=== PATIENT | male | born 1960 | race Two or more races ===

== ENCOUNTER → 2017-12-18 | Outpatient (CLI) | payer BC ==
[~2017-12-18] MED LIST: IOHEXOL 300 MG/ML 75 ML VIAL. IV ONE
[2017-12-18 09:22] LABS: GFR 77.3
--- NOTE | 2017-12-18 11:41 | RAD ---
Indication: Adenopathy. Known pulmonary embolism, diagnosed in September. Patient on blood thinners. Technique: Axial images and coronal and sagittal maximum intensity projection reformatted images are provided. The first contrast bolus was suboptimal in the patient was reinjected and imaging repeated. Total injection is 150 mL of intravenous Omnipaque 300. No comparison studies are available at this institution. One or more of the following individualized dose reduction techniques were utilized for this examination: 1. Automated exposure control 2. Adjustment of the mA and/or kV according to patient size 3. Use of iterative reconstruction technique Findings: The second contrast bolus is satisfactory. The exam is positive for nonocclusive thrombus within right lower lobe segmental arteries, best apparent series 4 image 80. No additional thrombus is apparent. There is no evidence of heart strain. Heart is not enlarged. There is minimal atheromatous disease in the thoracic aorta. There is no aortic aneurysm or dissection. There are prominent prevascular lymph nodes. Again, the outside prior study demonstrating adenopathy and pulmonary embolism is not provided. Largest of these nodes measures 22 x 13 mm in size. Largest right paratracheal lymph node measures 33 x 21 mm. Largest right hilar lymph node measures 31 x 22 mm. There are calcified left hilar and subcarinal lymph nodes. There are also a few calcified prevascular lymph nodes although the majority the prevascular lymph nodes are noncalcified. There is no pleural effusion. There is granulomatous disease. There is dependent atelectasis. There is emphysema. This is moderate. There is no worrisome pulmonary nodule. Central airways are patent. There is fatty infiltration of the liver. There are degenerative changes in the spine. IMPRESSION: 1. Right hilar and mediastinal adenopathy. Recommend correlation with the recent prior study. Reactive adenopathy and sarcoidosis are considerations. Follow-up to exclude metastatic disease or lymphoma is recommended. 2. Small amount of pulmonary embolism within right lower lobe segmental arteries, not occlusive. Please correlate with distribution/thrombus burden on prior CT. 3. Emphysema. 4. Granulomatous disease. 5. Fatty infiltration of the liver. Electronically signed by: Mayo Zamarripa MD (12/18/2017 11:38 AM) [id number]
== END | disposition home or self-care (01) ==
LOC: CT 08:31
PROVIDERS: ATTEND Internal Medicine Critical Care Medicine
DX: I26.99 Other pulmonary embolism without acute cor pulmonale (principal); J43.9 Emphysema, unspecified; D71 Functional disorders of polymorphonuclear neutrophils; K76.0 Fatty (change of) liver, not elsewhere classified; Z86.711 Personal history of pulmonary embolism
CPT/HCPCS: 36415; 71275; 82565; 84520; Q9967

== ENCOUNTER → 2017-12-25 | Outpatient (CLI) | payer BC ==
[2017-12-25 20:09] LABS: HOMOCYTSINE LEVEL 10.1 umol/L (0.0-15.0)
== END | disposition home or self-care (01) ==
LOC: LAB 07:40
PROVIDERS: ATTEND Internal Medicine Critical Care Medicine
DX: D71 Functional disorders of polymorphonuclear neutrophils (principal); K76.0 Fatty (change of) liver, not elsewhere classified; Z86.711 Personal history of pulmonary embolism
CPT/HCPCS: 36415; 83090; 85220

== ENCOUNTER → 2017-12-30 | Outpatient (CLI) | payer BC ==
--- NOTE | 2017-12-30 13:05 | RAD ---
Right leg venous Doppler study: Clinical indications: Right leg swelling and pain. History of pulmonary embolism. Findings: Duplex sonography (including quinn scale evaluation and color flow and waveform spectral analysis) of the proximal aspect of the greater saphenous vein and proximal aspect of the profunda femoral vein and the entire length of the common femoral and superficial femoral and popliteal veins and the tibioperoneal trunk and the proximal aspect of the posterior tibial and peroneal veins of the right leg was performed. Normal compressibility, augmentation of color Doppler flow after calf compression, and respiratory variation of Doppler flow is seen. Thus, there are no sonographic findings of deep venous thrombosis within these veins. Impression: There are no sonographic findings of deep venous thrombosis within the veins discussed above of the right lower extremity. Left leg venous Doppler study: Clinical indications: Left leg swelling and pain. History of pulmonary embolism. Findings: Duplex sonography (including quinn scale evaluation and color flow and waveform spectral analysis) of the proximal aspect of the greater saphenous vein and the proximal aspect of the profunda femoral vein and the entire length of the common femoral and superficial femoral and popliteal veins and the tibioperoneal trunk and the proximal aspect of the posterior tibial and peroneal veins of the left leg was performed. Normal compressibility, augmentation of color Doppler flow after calf compression, and respiratory variation of Doppler flow is seen. Thus, there are no sonographic findings of deep venous thrombosis within these veins. Impression: There are no sonographic findings of deep venous thrombosis within the veins discussed above of the left lower extremity. There is a 2.8 cm x 1.5 cm and 1.3 cm hypoechoic area with sound through transmission within the medial aspect of the left calf. Color Doppler flow is seen around it but not within it. This could represent a hematoma related to a muscle tear.
== END | disposition home or self-care (01) ==
LOC: US 11:56
PROVIDERS: ATTEND Nurse Practitioner Family
DX: M79.605 Pain in left leg (principal); M79.604 Pain in right leg; M79.89 Other specified soft tissue disorders; Z86.711 Personal history of pulmonary embolism
CPT/HCPCS: 93970

== ENCOUNTER → 2018-06-19 | Outpatient (CLI) | payer BC ==
[~2018-06-19] MED LIST changes: +BUDE10.2 IH; +LISI1TAB3 PO; +METF10003 PO; +RIVA10TA PO
[2018-06-19 11:59] LABS: BASO % 1 % (0-3); EOS % 1 % (0-3); HEMATOCRIT 42.5 % (39.0-53.0); HEMOGLOBIN 14.8 g/dL (13.0-17.5); LYMPH # 0.7 x10^3/uL (1.0-4.8); LYMPH % 17 % (24-48); MEAN CORPUSCULAR HEMOGLOBIN 30 pg (25-35); MEAN CORPUSCULAR HGB CONC 35 g/dL (31-37); MEAN CORPUSCULAR VOLUME 88 fL (79-100); MONO # 0.7 x10^3/uL (0.0-1.1); MONO % 17 % (0-9); NEUT # 2.6 x10^3uL (1.8-7.7); NEUT % 65 % (31-73); PLATELET COUNT 128 x10^3/uL (140-400); RED BLOOD COUNT 4.86 x10^6/uL (4.30-5.70); RED CELL DISTRIBUTION WIDTH 15.1 % (11.5-14.5)
[2018-06-19 12:07] LABS: ALBUMIN 3.7 g/dL (3.4-5.0); ALBUMIN/GLOBULIN RATIO 0.9 (1.0-1.7); CALCIUM 8.9 mg/dL (8.5-10.1); CREATININE 1.1 mg/dL (0.7-1.3); TOTAL BILIRUBIN 0.4 mg/dL (0.2-1.0); TOTAL PROTEIN 7.6 g/dL (6.4-8.2)
--- NOTE | 2018-06-19 12:13 | RAD ---
CT of the abdomen and pelvis with contrast, 06/19/2018: HISTORY: Abdominal pain Multidetector CT imaging was performed following an IV bolus injection of iodinated contrast material. No oral contrast material was administered for this exam as requested. Comparison is made to a study from 04/19/2018. The liver is of lower than normal density and diffuse pattern compatible with fatty change. It is enlarged measuring 21 cm in craniocaudad extent at the level the right lobe. Several calcified hepatic and splenic granulomata are present. No hepatic mass is evident. The gallbladder is unremarkable. No pancreatic abnormality is detected. The spleen is of normal size. There is bilateral renal cortical scarring. The kidneys show no evidence of obstruction or mass. No adrenal abnormality is detected. Aortoiliac calcific plaquing is present no abdominal or pelvic adenopathy is seen. Streaky paracolic inflammation has developed at the proximal sigmoid level. There are underlying diverticula with mild mural thickening. The findings suggest acute diverticulitis. No discrete paracolic fluid collection is seen to suggest abscess. The bowel loops are not dilated. No free air or free fluid is evident in the abdomen or pelvis. IMPRESSION: 1. Acute proximal sigmoid diverticulitis. 2. Hepatomegaly with hepatic steatosis. PQRS Compliance Statement: One or more of the following individualized dose reduction techniques were utilized for this examination: 1. Automated exposure control 2. Adjustment of the mA and/or kV according to patient size 3. Use of iterative reconstruction technique Electronically signed by: Hernesto Ramirez MD (06/19/2018 12:09 PM) [facility]
== END | disposition home or self-care (01) ==
LOC: CT 10:33
PROVIDERS: ATTEND Family Medicine
DX: K57.32 Diverticulitis of large intestine without perforation or abscess without bleeding (principal); K76.0 Fatty (change of) liver, not elsewhere classified; I10 Essential (primary) hypertension; E11.9 Type 2 diabetes mellitus without complications; J43.9 Emphysema, unspecified; Z86.711 Personal history of pulmonary embolism; Z87.891 Personal history of nicotine dependence
CPT/HCPCS: 36415; 74160; 80053; 82150; 83690; 85025; Q9967

== ENCOUNTER 2021-12-23 16:49 | Emergency (ER) | payer MEDICARE ==
[~2021-12-23] VITALS: Ht 182.9 cm; Wt 117.0 kg
[~2021-12-23 16:49] MED LIST changes: -IOHEXOL 300 MG/ML 75 ML VIAL. IV ONE; -LISI1TAB3 PO; +LISI1TAB35 PO; -METF10003 PO; +METF10007 PO
--- NOTE | 2021-12-23 17:43 | PHYS DOC ---
Past History Past Medical History: Bronchitis, Cancer, CHF, Hypertension (ELIGIO ARGUELLO MD) General Adult EDM: Chief Complaint: SHORTNESS OF BREATH HPI: HPI: 61-year-old male presents with shortness of breath. Patient has a history of lung cancer and PEs. He is on Eliquis. He started amlodipine about a week ago. For the last week he has started to feel more short of breath. He is also noted some lower extremity swelling and redness on his bilateral lower legs around the sock line. He denies any falls or trauma. He is always on 4 L of oxygen at home. His primary care physician recommended that he come in for evaluation. Patient denies fever or chills. (RASHAWN DAVIS DO) HPI: PhX. = Lung Ca, Dm, HTN, PE's, on Eliquis, Oxygen Dept. 2-4 lit NC, recent start on amlodipine. Primary Dr Gallardo. (ELIGIO ARGUELLO MD) Review of Systems: Review of Systems: Constitutional: Denies fever or chills Eyes: Denies change in visual acuity HENT: Denies nasal congestion or sore throat Respiratory: shortness of breath Cardiovascular: Edema of the bilateral lower legs. GI: Denies abdominal pain, nausea, vomiting, bloody stools or diarrhea : Denies dysuria Musculoskeletal: Denies back pain or joint pain Integument: Denies rash Neurologic: Denies headache, focal weakness or sensory changes Endocrine: Denies polyuria or polydipsia Lymphatic: Denies swollen glands Psychiatric: Denies depression or anxiety (RASHAWN DAVIS DO) Allergies: Allergies: Allergies Coded Allergies Type Severity Reaction Last Updated Verified pravastatin Allergy Unknown 06/19/18 Yes (RASHAWN DAVIS DO) Physical Exam: PE: Constitutional: Well developed, well nourished, no acute distress, non-toxic appearance. [] HENT: Normocephalic, atraumatic, bilateral external ears normal, oropharynx moist, no oral exudates, nose normal. [] Eyes: PERRLA, EOMI, conjunctiva normal, no discharge. [] Neck: Normal range of motion, no tenderness, supple, no stridor. [] Cardiovascular: Heart rate 112, regular rhythm, no murmur [] Lungs & Thorax: Bilateral breath sounds diminished. [] Abdomen: Bowel sounds normal, soft, no tenderness, no masses, no pulsatile masses. [] Skin: Warm, erythematous bilateral lower legs. [] Back: No tenderness, no CVA tenderness. [] Extremities: No tenderness, no cyanosis, no clubbing, ROM intact, 2+ pitting edema bilateral lower legs to the knees. [] Neurologic: Alert and oriented X 3, normal motor function, normal sensory function, no focal deficits noted. [] Psychologic: Affect normal, judgement normal, mood normal. [] (RASHAWN DAVIS DO) EKG: EKG: Sinus rhythm, rate 112, normal axis, no ST elevation or depression. [] (RASHAWN DAVIS DO) EKG: My interpretation EKG is sinus rhythm 112. Bimodal P waves. No findings acute STEMI or contralateral changes. (ELIGIO ARGUELLO MD) Radiology/Procedures: Radiology/Procedures: [] (RASHAWN DAVIS DO) Radiology/Procedures: [place] [address] IMAGING REPORT Signed PATIENT: PACO LLANES SACCOUNT: [id number] : 1960 LOCATION: ER AGE: 61 SEX: M EXAM STATUS: REG ER ORD. PHYSICIAN: RASHAWN DAVIS DO REASON: SHORTNESS OF BREATH, HX LUNG CANCER, COPD PROCEDURE: CHEST AP ONLY EXAM: XR CHEST 1V 12/23/2021 5:37 PM CLINICAL INDICATION: Shortness of breath, history of lung cancer and COPD COMPARISON: Chest radiograph 01/03/[address] chest 01/09/2020. TECHNIQUE: AP upright view of the chest FINDINGS: A left chest wall port tip projects over the superior cavoatrial junction, unchanged. The heart is normal in size. Mediastinal enlargement consistent with lymphadenopathy. There is right lung volume loss and mild confluent airspace opacities in the medial right upper lobe, similar to prior CT chest. Diffuse interstitial opacities, greater in the right lung, are new from prior CT. There is a calcified granuloma in the left lung base. No pleural effusion or pneumothorax. IMPRESSION: 1. Mediastinal lymphadenopathy and treatment-related changes in the right lung. 2. New diffuse interstitial opacities, greater on the right. Some of this could be due to evolving treatment-related changes, however multifocal infection, interstitial lung disease, or pulmonary edema are also possible. Electronically signed by: Tessie Roberson MD (12/23/2021 6:52 PM) [id number] DICTATED AND SIGNED BY: TESSIE ROBERSON MD DATE: 12/23/211834 CC: NICKIE GALLARDO MD; RASHAWN DAVIS DO; ELIGIO ARGUELLO MD ~MTH0 [address] [address] IMAGING REPORT Signed PATIENT: PACO LLANES SACCOUNT: [id number] : 1960 LOCATION: ER AGE: 61 SEX: M EXAM STATUS: REG ER ORD. PHYSICIAN: RASHAWN DAVIS DO REASON: SHORTNESS OF BREATH, HX LUNG CANCER, COPD PROCEDURE: CHEST AP ONLY EXAM: XR CHEST 1V 12/23/2021 5:37 PM CLINICAL INDICATION: Shortness of breath, history of lung cancer and COPD COMPARISON: Chest radiograph 01/03/[address] chest 01/09/2020. TECHNIQUE: AP upright view of the chest FINDINGS: A left chest wall port tip projects over the superior cavoatrial junction, unchanged. The heart is normal in size. Mediastinal enlargement consistent with lymphadenopathy. There is right lung volume loss and mild confluent airspace opacities in the medial right upper lobe, similar to prior CT chest. Diffuse interstitial opacities, greater in the right lung, are new from prior CT. There is a calcified granuloma in the left lung base. No pleural effusion or pneumothorax. IMPRESSION: 1. Mediastinal lymphadenopathy and treatment-related changes in the right lung. 2. New diffuse interstitial opacities, greater on the right. Some of this could be due to evolving treatment-related changes, however multifocal infection, interstitial lung disease, or pulmonary edema are also possible. Electronically signed by: Tessie Roberson MD (12/23/2021 6:52 PM) [id number] DICTATED AND SIGNED BY: TESSIE ROBERSON MD DATE: 12/23/211834 CC: NICKIE GALLARDO MD; RASHAWN DAVIS DO; ELIGIO ARGUELLO MD ~MTH0 0 (ELIGIO ARGUELLO MD) Heart Score: C/O Chest Pain: N/A Risk Factors: Risk Factors: DM, Current or recent (<one month) smoker, HTN, HLP, family history of CAD, obesity. Risk Scores: Score 0 - 3: 2.5% MACE over next 6 weeks - Discharge Home Score 4 - 6: 20.3% MACE over next 6 weeks - Admit for Clinical Observation Score 7 - 10: 72.7% MACE over next 6 weeks - Early Invasive Strategies (RASHAWN DAVIS DO) Course & Med Decision Making: Course & Med Decision Making Pertinent Labs and Imaging studies reviewed. (See chart for details) The patient's work-up is pending. I am signing the patient out to Dr. Arguello at 1800. [] (RASHAWN DAVIS DO) Course & Med Decision Making See Dr. Davis note prior shift change for details. Impression: 1. Atypical Pneumonia vs Pneumonitis 2. Lung Ca 3. Elevated BNP 555 4. Anemia Hgb 9.8 5. Malnutrition Alb. 2.6 Patient requesting discharge home. We will see 1 dose of Rocephin here and start and Zithromax for atypical pneumonia. Patient to have oncology and primary review ED record. Patient turn if any concerns. Patient's x-ray sent to with their review. Patient report marked improvement of symptoms at time of discharge. Patient taking Zithromax 250 a day. Patient use MDIs or breathing treatments 4 times a day. Patient to take prednisone 50 mg for the next 5 days. May require a longer taper due to his previous use for pneumonitis and chemotherapy. Review this with his primary care. (ELIGIO ARGUELLO MD) Dragon Disclaimer: Dragon Disclaimer: This electronic medical record was generated, in whole or in part, using a voice recognition dictation system. (RASHAWN DAVIS DO) Departure Departure: Referrals: NICKIE GALLARDO MD (PCP) Scripts Prednisone (PREDNISONE) 50 Mg Tablet 50 MG PO DAILY for pneumonitis for 5 Days, #5 TAB Prov: ELIGIO ARGUELLO MD 12/23/21 Azithromycin (ZITHROMAX) 250 Mg Tablet 250 MG PO DAILY for ANTI-BIOTIC for 5 Days, #5 TAB 0 Refills Prov: ELIGIO ARGUELLO MD 12/23/21 Dragon Disclaimer This chart was dictated in whole or in part using Voice Recognition software in a busy, high-work load, and often noisy Emergency Department environment. It may contain unintended and wholly unrecognized errors or omissions. (ELIGIO ARGUELLO MD) Maite Disclaimer This chart was dictated in whole or in part using Voice Recognition software in a busy, high-work load, and often noisy Emergency Department environment. It may contain unintended and wholly unrecognized errors or omissions. (ELIGIO ARGUELLO MD) RASHAWN DAVIS DO Dec 23, 2021 17:43 ELIGIO ARGUELLO MD Dec 23, 2021 18:12
[2021-12-23 18:15] LABS: BASO % 0 % (0-3); EOS # 0.1 x10^3/uL (0.0-0.7); EOS % 3 % (0-3); HEMATOCRIT 29.4 % (39.0-53.0); HEMOGLOBIN 9.8 g/dL (13.0-17.5); LYMPH # 0.7 x10^3/uL (1.0-4.8); LYMPH % 18 % (24-48); MEAN CORPUSCULAR HEMOGLOBIN 30 pg (25-35); MEAN CORPUSCULAR HGB CONC 33 g/dL (31-37); MEAN CORPUSCULAR VOLUME 89 fL (79-100); MONO # 0.6 x10^3/uL (0.0-1.1); MONO % 13 % (0-9); NEUT # 2.7 x10^3uL (1.8-7.7); NEUT % 66 % (31-73); PLATELET COUNT 255 x10^3/uL (140-400); RED BLOOD COUNT 3.31 x10^6/uL (4.30-5.70); WHITE BLOOD COUNT 4.1 x10^3/uL (4.0-11.0)
[2021-12-23 18:19] LABS: CALCIUM 8.5 mg/dL (8.5-10.1); CREATININE 2.1 mg/dL (0.7-1.3); GFR 32.4; POTASSIUM 3.7 mmol/L (3.5-5.1)
[2021-12-23 18:33] LABS: ALBUMIN 2.6 g/dL (3.4-5.0); ALBUMIN/GLOBULIN RATIO 0.6 (1.0-1.7); TOTAL BILIRUBIN 0.3 mg/dL (0.2-1.0); TOTAL PROTEIN 6.9 g/dL (6.4-8.2)
--- NOTE | 2021-12-23 18:54 | RAD ---
EXAM: XR CHEST 1V 12/23/2021 5:37 PM CLINICAL INDICATION: Shortness of breath, history of lung cancer and COPD COMPARISON: Chest radiograph 01/03/[address] chest 01/09/2020. TECHNIQUE: AP upright view of the chest FINDINGS: A left chest wall port tip projects over the superior cavoatrial junction, unchanged. The heart is normal in size. Mediastinal enlargement consistent with lymphadenopathy. There is right lung volume loss and mild confluent airspace opacities in the medial right upper lobe, similar to prior C T chest. Diffuse interstitial opacities, greater in the right lung, are new from prior CT. There is a calcified granuloma in the left lung base. No pleural effusion or pneumothorax. IMPRESSION: 1. Mediastinal lymphadenopathy and treatment-related changes in the right lung. 2. New diffuse interstitial opacities, greater on the right. Some of this could be due to evolving tr eatment-related changes, however multifocal infection, interstitial lung disease, or pulmonary edema are also possible. Electronically signed by: Tessie Roberson MD (12/23/2021 6:52 PM) [id number]
[2021-12-23 18:56] LABS: INFLUENZA A PATIENT NEGATIVE (NEGATIVE); INFLUENZA B PATIENT NEGATIVE (NEGATIVE)
[2021-12-23 19:16] VITALS: BP 125/89
[2021-12-23] MEDS ORDERED: AZITHROMYCIN 250 MG TABLET. PO ONE (19:45)
[2021-12-23] MEDS ORDERED: FUROSEMIDE 40 MG/4 ML VIAL IVP ONE (19:45)
[2021-12-23] MEDS ORDERED: predniSONE 10 MG TABLET. PO ONE (19:45)
[2021-12-23] MEDS ORDERED: PRED50TA PO (19:47)
[2021-12-23] MEDS ORDERED: AZIT250T PO (19:47)
--- NOTE | 2021-12-23 19:48 | EKG ---
[address] [address] Test Date: 2021-12-23 Test Time: 17:26:52 Pat Name: PACO LLANES Department: Room: Gender: M Oncology Transplant [facility] Manager: TOM : 1960 Requested By: RASHAWN DAVIS Order Number: [id number] Reading MD: Gerard De Measurements Intervals [place] Rate: 112 P: -22 TX: 140 QRS: 32 QRSD: 68 T: 42 QT: 370 QTc: 507 Interpretive Statements SINUS TACHYCARDIA Electronically Signed On 12-24-2021 19:27:54 [employer]IN[employer] DEVELOPER by Gerard De
[2021-12-23] MEDS ORDERED: cefTRIAXone SODIUM 1 GM VIAL ONE (20:19)
[2021-12-23] MEDS ORDERED: IV NORMAL SALINE 50ML 50 ML ONE (20:19)
[2021-12-23] MEDS ORDERED: HEPARIN PF 500 UNIT/5 ML DISP.SYRIN. IVP ONE (21:30)
== END 2021-12-23 20:56 | disposition home or self-care (01) ==
LOC: ER 16:49
DX: D64.9 Anemia, unspecified (principal); R79.89 Other specified abnormal findings of blood chemistry; E46 Unspecified protein-calorie malnutrition; I11.0 Hypertensive heart disease with heart failure; I50.9 Heart failure, unspecified; Z20.822 Contact with and (suspected) exposure to COVID-19; Z68.35 Body mass index [BMI] 35.0-35.9, adult; Z85.118 Personal history of other malignant neoplasm of bronchus and lung; Z86.711 Personal history of pulmonary embolism; Z79.01 Long term (current) use of anticoagulants; Z88.8 Allergy status to other drugs, medicaments and biological substances
CPT/HCPCS: 36415; 71045; 80053; 83605; 83880; 84484; 85025; 87040; 87428; 93005; 96365; 96375; 99285; J0696; J1940; J7512

== ENCOUNTER 2022-02-05 12:57 | Emergency (ER) | payer MEDICARE ==
[~2022-02-05] VITALS: Ht 182.9 cm; Wt 117.0 kg
[~2022-02-05 12:57] MED LIST changes: +AZIT250T PO; +PRED50TA PO
[2022-02-05] MEDS ORDERED: MORPHINE SULFATE 4 MG/ML DISP.SYRIN. IV ONE (13:45)
[2022-02-05] MEDS ORDERED: HYDROmorphone PF 1 MG/ML DISP.SYRIN IVP ONE ×3 (14:00→17:45)
[2022-02-05 15:16] LABS: BASO % 0 % (0-3); EOS # 0.3 x10^3/uL (0.0-0.7); EOS % 6 % (0-3); HEMATOCRIT 28.5 % (39.0-53.0); HEMOGLOBIN 9.3 g/dL (13.0-17.5); LYMPH # 0.6 x10^3/uL (1.0-4.8); LYMPH % 11 % (24-48); MEAN CORPUSCULAR HEMOGLOBIN 32 pg (25-35); MEAN CORPUSCULAR HGB CONC 33 g/dL (31-37); MEAN CORPUSCULAR VOLUME 97 fL (79-100); MONO # 0.7 x10^3/uL (0.0-1.1); MONO % 13 % (0-9); NEUT # 3.4 x10^3uL (1.8-7.7); NEUT % 69 % (31-73); PLATELET COUNT 286 x10^3/uL (140-400); RED BLOOD COUNT 2.95 x10^6/uL (4.30-5.70); WHITE BLOOD COUNT 4.9 x10^3/uL (4.0-11.0)
[2022-02-05] MEDS ORDERED: IOHEXOL 350 MG/ML 100 ML VIAL. IV ONE (15:30)
[2022-02-05] MEDS ORDERED: CONTRAST GIVEN. MC PRN (15:30)
[2022-02-05 15:35] LABS: CALCIUM 8.6 mg/dL (8.5-10.1); GFR 34.3; POTASSIUM 4.1 mmol/L (3.5-5.1)
[2022-02-05 15:37] LABS: ANISOCYTOSIS SLIGHT; MICROCYTOSIS SLIGHT; PLT ESTIMATE ADEQUATE (ADEQUATE)
[2022-02-05 15:40] LABS: ALBUMIN 2.8 g/dL (3.4-5.0); ALBUMIN/GLOBULIN RATIO 0.7 (1.0-1.7); TOTAL BILIRUBIN 0.3 mg/dL (0.2-1.0); TOTAL PROTEIN 6.9 g/dL (6.4-8.2)
--- NOTE | 2022-02-05 16:47 | PHYS DOC ---
Past History Past Medical History: Bronchitis, Cancer, CHF, Hypertension Additional Past Medical Histor: STAGE 4 LUNG CANCER (ULI GUERRA) Past Surgical History: Other (ULI GUERRA) Smoking: Cigarettes Alcohol Use: None (ULI GUERRA) General Adult EDM: Chief Complaint: CHEST PAIN HPI: HPI: Patient is a 61 year old male currently undergoing chemotherapy treatment for lung cancer who presents with greater than 1 week history of worsening shortness of breath and chest pain. 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 azithromycin last week for pneumonia in his left lung. Today, he states he has central 10/10 stabbing chest pain that waxes and wanes. He denies other complaints at this time. (ULI GUERRA) Review of Systems: Review of Systems: Constitutional: Denies fever, chills or generalized weakness Eyes: Denies change in visual acuity, visual field deficits or discharge HENT: Denies ear pain, nasal congestion or sore throat Respiratory: Denies cough; Reports shortness of breath Cardiovascular: Denies palpitations or edema; Reports chest pain GI: Denies abdominal pain, nausea, vomiting, bloody stools or diarrhea : Denies dysuria or hematuria Musculoskeletal: Denies back pain or joint pain Integument: Denies rash or other skin lesion Neurologic: Denies headache, focal weakness or sensory changes (ULI GUERRA) Current Medications: Current Meds: Current Medications Medications (Trade) Dose Ordered Sig/Susu Route PRN Reason Start Time Stop Time Status Last Admin Dose Admin Morphine Sulfate (Morphine 4mg Syringe) 4 mg 1X ONCE IV 02/05/22 13:45 02/05/22 13:46 DC 02/05/22 13:44 Hydromorphone HCl (Dilaudid) 1 mg 1X ONCE IVP 02/05/22 14:00 02/05/22 14:02 DC 02/05/22 14:00 Hydromorphone HCl (Dilaudid) 1 mg 1X ONCE IVP 02/05/22 15:15 02/05/22 15:16 DC 02/05/22 15:15 Hydromorphone HCl (Dilaudid) 1 mg 1X ONCE IVP 02/05/22 17:45 02/05/22 17:47 DC 02/05/22 17:45 (ULI GUERRA) Allergies: Allergies: Allergies Coded Allergies Type Severity Reaction Last Updated Verified pravastatin Allergy Unknown 06/19/18 Yes (ULI GUERRA) Physical Exam: PE: Constitutional: Obese, appears to be in respiratory distress with increased work of breathing. HENT: Normocephalic, atraumatic, bilateral external ears normal, nose normal. Eyes: EOMI, conjunctiva normal, no discharge. Neck: Normal range of motion, no stridor. Cardiovascular: Elevated heart rate with no apparent murmurs, rubs or gallops. Lungs & Thorax: Equal thoracic expansion, patient is breathing rapidly and somewhat shallowly, patient does appear to be in respiratory distress, breath sounds diminished throughout. Skin: Warm, dry, no erythema, no rash, no cyanosis. Neurologic: Alert and oriented X 3, normal motor function, normal sensory function, no focal deficits noted. (ULI GUERRA) Current Patient Data: Labs: Laboratory Tests Test 02/05/22 13:16 02/05/22 17:20 White Blood Count 4.9 x10^3/uL (4.0-11.0) Red Blood Count 2.95 x10^6/uL (4.30-5.70) Hemoglobin 9.3 g/dL (13.0-17.5) Hematocrit 28.5 % (39.0-53.0) Mean Corpuscular Volume 97 fL (79-100) Mean Corpuscular Hemoglobin 32 pg (25-35) Mean Corpuscular Hemoglobin Concent 33 g/dL (31-37) Red Cell Distribution Width 22.0 % (11.5-14.5) Platelet Count 286 x10^3/uL (140-400) Neutrophils (%) (Auto) 69 % (31-73) Lymphocytes (%) (Auto) 11 % (24-48) Monocytes (%) (Auto) 13 % (0-9) Eosinophils (%) (Auto) 6 % (0-3) Basophils (%) (Auto) 0 % (0-3) Neutrophils # (Auto) 3.4 x10^3uL (1.8-7.7) Lymphocytes # (Auto) 0.6 x10^3/uL (1.0-4.8) Monocytes # (Auto) 0.7 x10^3/uL (0.0-1.1) Eosinophils # (Auto) 0.3 x10^3/uL (0.0-0.7) Basophils # (Auto) 0.0 x10^3/uL (0.0-0.2) Platelet Estimate Adequate (ADEQUATE) Anisocytosis Slight Microcytosis Slight Macrocytosis Slight Sodium Level 136 mmol/L (136-145) Potassium Level 4.1 mmol/L (3.5-5.1) Chloride Level 103 mmol/L (98-107) Carbon Dioxide Level 25 mmol/L (21-32) Anion Gap 8 (6-14) Blood Urea Nitrogen 15 mg/dL (8-26) Creatinine 2.0 mg/dL (0.7-1.3) Estimated GFR (Cockcroft-Gault) 34.3 BUN/Creatinine Ratio 8 (6-20) Glucose Level 156 mg/dL (70-99) Calcium Level 8.6 mg/dL (8.5-10.1) Total Bilirubin 0.3 mg/dL (0.2-1.0) Aspartate Amino Transf (AST/SGOT) 19 U/L (15-37) Alanine Aminotransferase (ALT/SGPT) 17 U/L (16-63) Alkaline Phosphatase 106 U/L (46-116) Troponin I High Sensitivity 10 ng/L (4-75) Total Protein 6.9 g/dL (6.4-8.2) Albumin 2.8 g/dL (3.4-5.0) Albumin/Globulin Ratio 0.7 (1.0-1.7) Blood Gas pH 7.40 (7.35-7.46) Blood Gas PCO2 40 mmHg (35-46) Blood Gas PO2 123 mmHg (80-100) Blood Gas HCO3 25 mmol/L (21-28) Arterial Bld O2 Saturation (Calc) 99 % (92-99) FiO2 40 % Vital Signs: Vital Signs Date Time Temp Pulse Resp B/P (MAP) Pulse Ox O2 Delivery O2 Flow Rate FiO2 02/05/22 18:00 130 20 153/94 (113) 100 BiPAP/CPAP 02/05/22 17:45 32 99 02/05/22 17:00 124 33 188/94 (125) 100 BiPAP/CPAP 02/05/22 16:53 100 BiPAP/CPAP 02/05/22 16:00 125 33 170/91 (117) 94 Nasal Cannula 4.0 02/05/22 15:15 32 93 4.0 02/05/22 15:00 113 34 164/99 (120) 93 Nasal Cannula 4.0 02/05/22 14:00 111 34 140/88 (105) 93 Nasal Cannula 4.0 02/05/22 14:00 33 95 02/05/22 13:44 30 95 02/05/22 13:00 98.0 113 26 160/98 (118) 95 Nasal Cannula 4.0 (ULI GUERRA) EKG: EKG: EKG Interpreted by Dr. Olvera at 1306: Sinus tachycardia 119 bpm with no ectopic beats. QT 282 ms/QTc 403 ms. No STEMI. (ULI GUERRA) Radiology/Procedures: Radiology/Procedures: PACS system having difficulties, radiology reads only available within [employer]. Impression is dictated using Dragon. Worsening bilateral infiltrates appreciated on chest x-ray. (ULI GUERRA) Heart Score: C/O Chest Pain: Yes HEART Score for Chest Pain: HEART Score for Chest Pain Response (Comments) Value History Slighlty/Non-Suspicious 0 ECG Normal 0 Age >45 - < 65 1 Risk Factors >3 Risk Factors or Hx CAD 2 Troponin < Normal Limit 0 Total 3 Risk Factors: Risk Factors: Current smoker, HTN, obesity. Risk Scores: Score 0 - 3: 2.5% MACE over next 6 weeks - Discharge Home Score 4 - 6: 20.3% MACE over next 6 weeks - Admit for Clinical Observation Score 7 - 10: 72.7% MACE over next 6 weeks - Early Invasive Strategies (ULI GUERRA) Course & Med Decision Making: Course & Med Decision Making Pertinent Labs and Imaging studies reviewed. (See chart for details) Patient is a 61-year-old male currently undergoing chemotherapy for lung cancer who presents with shortness of breath and chest pain. Patient gets his care typically at [facility]. Cardiopulmonary work-up today will include labs, EKG, chest x-ray. After administering 4 IV morphine, 2 IV Dilaudid, patient's pain is improved. Despite his pain being better controlled, he still continues to have respiratory rate in the mid 30s. Decision was made to place patient on BiPAP secondary to tachypnea and known worsening pneumonia. As we do not have pulmonology or critical care physicians available here at [facility], discussed with patient transfer to . Patient and his son at bedside are agreeable to transfer for higher level of care where specialist know his case. transfer center was contacted, as patient receives his pulmonology and oncology care there. Dr. Sibley, critical care medicine, accepts patient for transfer. Patient was stable at time of transfer. (ULI GUERRA) Dragon Disclaimer: Dragon Disclaimer: This electronic medical record was generated, in whole or in part, using a voice recognition dictation system. (ULI GUERRA) Critical Care Note Total Time (mins): 40 Comments Total critical care time: Approximately 40 minutes Due to a high probability of clinically significant, life threatening deterioration, the patient required my highest level of preparedness to intervene emergently and I personally spent this critical care time directly and personally managing the patient. This critical care time included obtaining a history; examining the patient; pulse oximetry; ordering and review of studies; arranging urgent treatment with development of a management plan; evaluation of patient's response to treatment; frequent reassessment; and, discussions with other providers. This critical care time was performed to assess and manage the high probability of imminent, life-threatening deterioration that could result in multi-organ failure. It was exclusive of separately billable procedures and treating other patients and teaching time. Please see MDM section and the rest of the note for further information on patient assessment and treatment. Critical care was assisted by Dr. Valetnín Olvera DO in the emergency department. (ULI GUERRA) Departure Departure: Impression: Primary Impression: Respiratory distress Additional Impressions: Hx of cancer of lung Pneumonia of both lungs Qualified Codes: J18.9 - Pneumonia, unspecified organism Disposition: 02 SHORT TERM [facility]OSPITAL Condition: GUARDED Referrals: NICKIE RANDOLPH MD (PCP) Attending Signature Attending Signature I have reviewed the PA/LIME HIDE INSPECTOR's note and plan of care. I was available for consultation as needed during the patient's visit in the emergency department. I agree with the clinical impression, plan, and disposition. (VALENTÍN OLVERA DO) ULI GUERRA Feb 05, 2022 16:47 VALENTÍN OLVERA DO Feb 06, 2022 06:48
[2022-02-05 17:36] LABS: BGAS PH 7.4 (7.35-7.46)
[2022-02-05 18:00] VITALS: BP 153/94
--- NOTE | 2022-02-06 11:42 | EKG ---
[address] [address] Test Date: 2022-02-05 Test Time: 13:06:20 Pat Name: PACO LLANES Department: Room: Gender: M Lead Custodian: WILL : 1960 Requested By: ULI GUERRA Order Number: [id number] Reading MD: Gerard De Measurements Intervals [place] Rate: 119 P: 38 NC: 164 QRS: 31 QRSD: 68 T: 39 QT: 282 QTc: 403 Interpretive Statements SINUS TACHYCARDIA s Electronically Signed On 02-08-2022 21:36:58 CDT by Gerard De
--- NOTE | 2022-02-06 11:43 | RAD ---
EXAM: CHEST 1 VIEW History: Chest pain COMPARISON: 12/23/2021 TECHNIQUE: Single portable radiograph of the chest FINDINGS: Mild cardiomegaly. Interval increase in moderate bilateral interstitial lung markings likely inters titial infiltrates with scattered airspace opacities bilateral lungs likely atelectasis or infiltrate s. Left-sided Port-A-Cath is identified. IMPRESSION: Interval increase in moderate bilateral interstitial lung markings likely interstitial infiltrates wi th scattered airspace opacities bilateral lungs likely infiltrates increased since prior exam. Electronically signed by: Zain Lagos MD (02/05/2022 3:19 PM) [id number]
== END 2022-02-05 18:41 | disposition short-term general hospital (02) ==
LOC: ER 12:57
DX: J18.9 Pneumonia, unspecified organism (principal); R06.03 Acute respiratory distress; I11.0 Hypertensive heart disease with heart failure; I50.9 Heart failure, unspecified; F17.210 Nicotine dependence, cigarettes, uncomplicated; Z85.118 Personal history of other malignant neoplasm of bronchus and lung; Z88.8 Allergy status to other drugs, medicaments and biological substances
CPT/HCPCS: 36415; 71045; 80053; 82803; 84484; 85025; 93005; 94660; 96374; 96375; 96376; 99291; J1170; J2270